=== PATIENT | female | born 1980 | race Caucasian/White ===

== ENCOUNTER 2024-04-26 08:36 | Emergency (ER) | payer SELFPAY ==
[2024-04-26] MEDS ORDERED: Nicardipine/NS 25 MG/250 ML KIT IV ONE (08:54)
--- NOTE | 2024-04-26 09:02 | RAD REPORT ---
Procedure: Chest Single View HISTORY: Cardiac arrest COMPARISON: 2017 FINDINGS: Endotracheal tube has its tip couple centimeters above the fred. Nasogastric tube within the stomach Mild bilateral pulmonary opacities No significant pleural effusion noted. The heart is probably mildly enlarged
[2024-04-26] MEDS ORDERED: propofoL 1,000 MG/100 ML VIAL IV ONE (09:05)
[2024-04-26] MEDS ORDERED: NA CHLORIDE 0.9% 100 ML ONE (09:22)
[2024-04-26] MEDS ORDERED: LEVETIRACETAM 500 MG/5 ML VIAL IV ONE (09:22)
--- NOTE | 2024-04-26 09:26 | EDPHYS ---
Physician Documentation [facility] Name: Anjana Dunne Age: 43 yrs Sex: Female : 1980 Arrival Date: 04/26/2024 Time: 08:36 Bed 2 Private MD: ED Physician Antonio Borja HPI: 04/26 09:26 This 43 yrs old Female presents to ER via EMS with complaints of CPR. ms3 09:26 Anjana Dunne is a 43-year-old female who was brought to the Emergency Department via [facility] after experiencing cardiac arrest. On EMS arrival patient was in pulseless electrical activity (PEA) and later went into asystole. Cardiopulmonary resuscitation (CPR) was performed for 13 minutes, after which circulation was restored. The patient received 20 micrograms of push dose epinephrine prior to arrival at the hospital. Her initial heart rate post-resuscitation was 116 beats per minute. She now exhibits some purposeful movements. Prior to this event, she had no recent history of illness or changes in health status as reported by her family.. Historical: - Allergies: :54 No Known Allergies; bp - Home Meds: :54 None [Active]; bp - PMHx: :54 None; bp - Immunization history:: Adult Immunizations unknown. - Infectious Disease History:: Denies. - Social history:: Smoking status: unknown. ROS: 09:26 Unable to obtain ROS due to obtunded state, ms3 Exam: 09:26 Respiratory: Lungs have equal breath sounds bilaterally, clear to auscultation and ms3 percussion. No rales, rhonchi or wheezes noted. No increased work of breathing, no retractions or nasal flaring. 09:26 Abdomen/GI: Soft, non-tender, with normal bowel sounds. No distension or tympany. No guarding or rebound. No evidence of tenderness throughout. 09:26 Eyes: Pupils: Pupils sluggish to light, equal, 09:26 ENT: 7.5 ETT. 09:26 Cardiovascular: Rate: tachycardic, Rhythm: regular, Pulses: no pulse deficits are appreciated, Heart sounds: normal, normal S1and S2, 09:26 Neuro: Orientation: unable to test, Mentation: unable to test, Memory: unable to test, ms3 09:55 ECG was reviewed by the Attending Physician. ms3 Vital Signs: 08:38 BP 262 / 158; Pulse 112; Resp 12; Temp 97.8; Pulse Ox 100% ; Weight 87 kg; bp 08:45 BP 268 / 189; Pulse 132; Resp 18; Pulse Ox 99% on ETT vent; ko1 09:00 BP 197 / 145; Pulse 138; Resp 18; Pulse Ox 100% ; ko1 09:15 BP 218 / 154; Pulse 148; Resp 18; Pulse Ox 100% ; ko1 09:27 BP 205 / 134; Pulse 150; Resp 18; Pulse Ox 100% ; ko1 09:40 BP 192 / 122; Pulse 152; Resp 18; Pulse Ox 99% ; ko1 09:54 BP 199 / 122; Pulse 151; Resp 23; Pulse Ox 100% ; bp Diogenes Coma Score: 09:26 Eye Response: none(1). Motor Response: none(1). Verbal Response: none(1). Total: 3. ms3 MDM: 08:39 Medical Screening Exam initiated ms3 09:25 ED course: Discussed case with Dr Suazo and he accepts patient to the ED. ms3 09:37 ED course: [facility] notified of transfer and will arrive in 10 min.. ms3 09:53 Differential diagnosis: cardiac arrest, respiratory arrest, ICH. Data reviewed: vital ms3 signs, nurses notes, lab test result(s), radiologic studies, and as a result, I will. Consideration of Admission/Observation Will transfer. Management of patient was discussed with the following: Neuro ICU, Dr Suazo, accepts to ER. Discussed case with Dr Hailee Levin and she accepts patient to ER. I considered the following discharge prescriptions or medication management in the emergency department Medications were administered in the Emergency Department. See MAR. Independent interpretation of the following test(s) in the Emergency Department EKG: See my EKG interpretation above. Historians other than the Patient: EMS: Gee Hendricks. Counseling: I had a detailed discussion with the patient and/or guardian regarding the historical points, exam findings, and any diagnostic results supporting the discharge/admit diagnosis, lab results, radiology results, the need to transfer to another facility, for higher level of care. 04/26 08:40 Order name: Basic Metabolic Panel ms3 04/26 08:40 Order name: CBC with Diff ms3 04/26 08:40 Order name: LFT's ms3 04/26 08:40 Order name: Magnesium ms3 04/26 08:40 Order name: PT-INR ms3 04/26 08:40 Order name: Troponin HS ms3 04/26 09:05 Order name: Test, Serum ms3 04/26 08:40 Order name: XRAY Chest (1 view); Complete Time: 09:17 ms3 04/26 08:41 Order name: CT Head C Spine; Complete Time: 09:38 ms3 04/26 09:18 Order name: Chest Abd Pelvis Wo Con; Complete Time: 09:38 EDMS 04/26 08:40 Order name: Cardiac monitoring; Complete Time: 08:52 ms3 04/26 08:40 Order name: EKG - Nurse/Tech; Complete Time: 08:52 ms3 04/26 08:40 Order name: IV Saline Lock; Complete Time: 09:14 ms3 04/26 08:40 Order name: Labs collected and sent; Complete Time: 09:14 ms3 04/26 08:40 Order name: O2 Per Protocol; Complete Time: 08:52 ms3 04/26 08:40 Order name: O2 Sat Monitoring; Complete Time: 08:52 ms3 04/26 09:05 Order name: Labs - recollect needed: recollect all tubes; Complete Time: 09:39 bd EC:55 Rate is 117 beats/min. Rhythm is regular. QRS [place] is Normal. MO interval is normal. ms3 QRS interval is normal. Clinical impression: Sinus tachycardia and with PVC. Interpreted by me. Reviewed by me. Administered Medications: 09:00 Drug: niCARdipine IV 5 mg/hr IV at calculated rate See Administration Instructions; bp (Standard concentration 25 mg / 250 mL NS); Recommended max rate 15 mg/hr; Titrate 2.5 mg/hr as often as every 15 minutes to achieve goal (see titration policy); Goal parameter SBP less than 160 mmHg Route: IV; Rate: calculated rate; Site: left antecubital; 09:58 Follow up: IV Status: Infusion continued upon transfer bp 10:18 Follow up: IV Status: Infusion continued upon transfer ko1 09:10 Drug: Propofol IV 5 mcg/kg/min IV at calculated rate See Administration Instructions; bp Standard concentration 1000 mg / 100 mL; Recommended max rate 50 mcg/kg/min; Titrate 5 mcg/kg/min every 5 minutes to achieve goal (see titration policy); Goal parameter RASS score 0 to -2 Route: IV; Rate: calculated rate; Site: left antecubital; 09:58 Follow up: IV Status: Infusion continued upon transfer bp 10:18 Follow up: IV Status: Infusion continued upon transfer ko1 09:31 Drug: Keppra IV 20 mg/kg IV at calculated rate once; not to exceed 2,500 milligrams bp administer over 15 minutes Route: IV; Rate: calculated rate; Site: left hand; 09:45 Follow up: Response: No adverse reaction; IV Status: Completed infusion; IV Intake: ko1 100ml 09:58 Follow up: IV Status: Completed infusion bp 09:57 Drug: Ativan IVP 2 mg IVP once Route: IVP; Site: left forearm; ko1 09:58 Follow up: Response: No adverse reaction bp 10:19 Follow up: Response: No adverse reaction ko1 Disposition: 09:56 Chart complete. ms3 Disposition Summary: 04/26/24 09:25 Transfer Ordered Notes: Transfer Location: [facility] ms3 Reason: Higher level of care ms3 Condition: Critical ms3 Problem: new ms3 Symptoms: are unchanged ms3 Accepting Physician: Dr Suazo(04/26/24 10:17) ll1 Diagnosis - Nontraumatic subarachnoid hemorrhage, unspecified ms3 - Hypertensive Emergency ms3 Forms: - Medication Reconciliation Form ms3 - SBAR form ms3 Signatures: Dispatcher [employer] EDMS Irma Chacon Brian RN NASIR bp Zara Sanchez RN RN ll1 Antonio Borja DO DO ms3 Robyn Mcclelland RN RN ko1 Corrections: (The following items were deleted from the chart) 08:40 08:40 BASIC METABOLIC PANEL+C.LAB.BRZ ordered. EDMS EDMS 08:40 08:40 CBC+H.LAB.BRZ ordered. EDMS EDMS 08:40 08:40 HEPATIC FUNCTION+C.LAB.BRZ ordered. EDMS EDMS 08:40 08:40 MAGNESIUM+C.LAB.BRZ ordered. EDMS EDMS 08:40 08:40 PROTIME (+INR)+COAG.LAB.BRZ ordered. EDMS EDMS 08:40 08:40 Troponin High Sensitivity+C.LAB.BRZ ordered. EDMS EDMS 08:40 08:40 Chest Single View+RAD.RAD.BRZ ordered. EDMS EDMS 09:18 08:42 Chest For PE Angio+CT.RAD.BRZ ordered. EDMS EDMS 09: 08:42 Abdomen Pelvis W Con+CT.RAD.BRZ ordered. EDMS EDMS 10:17 09:25 Dr Suazo ms3 ll1
--- NOTE | 2024-04-26 09:26 | ER ---
Nurse's Notes [facility] Name: Anjana Dunne Age: 43 yrs Sex: Female : 1980 Arrival Date: 04/26/2024 Time: 08:36 Bed 2 Private MD: Diagnosis: Nontraumatic subarachnoid hemorrhage, unspecified;Hypertensive Emergency Presentation: 04/26 08:38 Chief complaint: EMS states: FOUND DOWN BY , UNKNOWN DOWNTIME. Care prior to bp arrival: Assisted ventilation, Oral intubation, CPR via thumper performed by EMS Medication(s) given: EPI x2 IV initiated. LEFT TIB IO Glucose check: 108. Compressions began prior to arrival. 08:38 Method Of Arrival: EMS: [facility] bp 08:38 Acuity: [place] 1 bp 08:38 Coronavirus screen: At this time, the client does not indicate any symptoms associated bp with coronavirus-19. Ebola Screen: No symptoms or risks identified at this time. Initial Sepsis Screen: Does the patient meet any 2 criteria? Altered Mental Status. HR > 90 bpm. Does the patient have a suspected source of infection? No. Patient's initial sepsis screen is negative. Risk Assessment: Do you want to hurt yourself or someone else? Unable to obtain. Onset of symptoms is unknown. Triage Assessment: 09:57 General: Appears distressed, Behavior is unresponsive. Pain: Unable to use pain scale. bp Does not appear to understand pain scale. Historical: - Allergies: 09:54 No Known Allergies; bp - Home Meds: 09:54 None [Active]; bp - PMHx: 09:54 None; bp - Immunization history:: Adult Immunizations unknown. - Infectious Disease History:: Denies. - Social history:: Smoking status: unknown. Screenin:38 Abuse screen: Denies threats or abuse. Denies injuries from another. Nutritional bp screening: No deficits noted. Tuberculosis screening: No symptoms or risk factors identified. 08:[address] [facility] ED Fall Risk Assessment (Adult) History of falling in the last 3 months, bp including since admission No falls in past 3 months (0 pts) Confusion or Disorientation No (0 pts) Intoxicated or Sedated No (0 pts) Impaired Gait No (0 pts) Mobility Assist Device Used No (0 pt) Altered Elimination No (0 pt) Score/Fall Risk Level 0 - 2 = Low Risk Oriented to surroundings. Assessment: 08:38 CPR assessment: unresponsive. 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 General: Appears in no bp apparent distress. Behavior is unresponsive. Neuro: Level of Consciousness is unresponsive, Oriented to none. EENT: No deficits noted. Cardiovascular: Rhythm is sinus tachycardia. Respiratory: Ventilator assessment: ET Tube: 7.5 23 cm. GI: No signs and/or symptoms were reported involving the gastrointestinal system. : No signs and/or symptoms were reported regarding the genitourinary system. Derm: No deficits noted. 09:14 Reassessment: SZ-LIKE ACTIVITY IN CT. MD AT B/S, SAH NOTED ON CT PER MD. bp 09:20 Reassessment: PT RETURNED FROM CT. bp 09:53 Reassessment: PT PADDY WITH [facility]. REPORT TO JASKARAN BEST AT [facility] ICU. bp Vital Signs: 08:38 BP 262 / 158; Pulse 112; Resp 12; Temp 97.8; Pulse Ox 100% ; Weight 87 kg; bp 08:45 BP 268 / 189; Pulse 132; Resp 18; Pulse Ox 99% on ETT vent; ko1 09:00 BP 197 / 145; Pulse 138; Resp 18; Pulse Ox 100% ; ko1 09:15 BP 218 / 154; Pulse 148; Resp 18; Pulse Ox 100% ; ko1 09:27 BP 205 / 134; Pulse 150; Resp 18; Pulse Ox 100% ; ko1 09:40 BP 192 / 122; Pulse 152; Resp 18; Pulse Ox 99% ; ko1 09:54 BP 199 / 122; Pulse 151; Resp 23; Pulse Ox 100% ; bp [employer] Coma Score: 09:26 Eye Response: none(1). Motor Response: none(1). Verbal Response: none(1). Total: 3. ms3 ED Course: 08:38 Patient arrived in ED. bd 08:38 Patient has correct armband on for positive identification. bp 08:38 Maintain EMS IV. Dressing intact. Good blood return noted. Site clean \T\ dry. Gauge \T\ bp site: 15 LEFT TIB/FIB IO. 08:38 Provided Education on: NA. bp 08:39 Antonio Borja DO is Attending Physician. ms3 08:44 Mynor Ellsworth, RN is Primary Nurse. bp 08:47 Triage completed. bp 08:51 No provider procedures requiring assistance completed. bp 08:57 XRAY Chest (1 view) In Process Unspecified. EDMS 09:00 Inserted saline lock: 18 gauge in left antecubital area, using aseptic technique. bp Flushed with 10 mL NS. 09:15 CT Head C Spine In Process Unspecified. EDMS 09:21 Chest Abd Pelvis Wo Con In Process Unspecified. EDMS 09:21 initiated transfer to [facility]. bd 09:27 Inserted saline lock: 20 gauge in right forearm, using aseptic technique. Flushed with ko1 10 mL NS. 09:31 Lab(s) recollected, by me, sent to lab. Inserted saline lock: 20 gauge in left hand, bp using aseptic technique. Blood collected. Flushed with 10 mL NS. 09:57 Patient transferred, IV remains in place. bp 09:58 Arm band placed on. bp 10:00 Report given to Jerome Jaquez EMT-P with [facility]. ko1 10:02 pt accepted in transfer to [facility] by dr walker to neuro icu [address] [place] [address] bed 11, bd admin approval given by Rosa M Phillips RN. Administered Medications: 09:00 Drug: niCARdipine IV 5 mg/hr IV at calculated rate See Administration Instructions; bp (Standard concentration 25 mg / 250 mL NS); Recommended max rate 15 mg/hr; Titrate 2.5 mg/hr as often as every 15 minutes to achieve goal (see titration policy); Goal parameter SBP less than 160 mmHg Route: IV; Rate: calculated rate; Site: left antecubital; 58 Follow up: IV Status: Infusion continued upon transfer bp 10:18 Follow up: IV Status: Infusion continued upon transfer ko1 09:10 Drug: Propofol IV 5 mcg/kg/min IV at calculated rate See Administration Instructions; bp Standard concentration 1000 mg / 100 mL; Recommended max rate 50 mcg/kg/min; Titrate 5 mcg/kg/min every 5 minutes to achieve goal (see titration policy); Goal parameter RASS score 0 to -2 Route: IV; Rate: calculated rate; Site: left antecubital; 58 Follow up: IV Status: Infusion continued upon transfer bp 10:18 Follow up: IV Status: Infusion continued upon transfer ko1 09:31 Drug: Keppra IV 20 mg/kg IV at calculated rate once; not to exceed 2,500 milligrams bp administer over 15 minutes Route: IV; Rate: calculated rate; Site: left hand; 09:45 Follow up: Response: No adverse reaction; IV Status: Completed infusion; IV Intake: ko1 100ml 09:58 Follow up: IV Status: Completed infusion bp 09:57 Drug: Ativan IVP 2 mg IVP once Route: IVP; Site: left forearm; ko1 09:58 Follow up: Response: No adverse reaction bp 10:19 Follow up: Response: No adverse reaction ko1 Medication: 09:58 VIS not applicable for this client. bp Intake: 09:45 IV: 100ml; Total: 100ml. ko1 Outcome: 08:38 Outcome Resuscitation successful bp 09:25 ER care complete, transfer ordered by MD. ms3 09:57 Transferred by helicopter to [facility], Transfer form completed. bp 09:57 Condition: stable 09:57 Instructed on the need for transfer, 10:17 Patient left the ED. ll1 Signatures: Dispatcher [employer] EDMS Irma Chacon Brian, RN RN bp Zara Sanchez RN RN ll1 Antonio Borja DO DO ms3 Robyn Mcclelland, RN RN ko1 Corrections: (The following items were deleted from the chart) 09:18 08:38 BP 262 / 158; Pulse 112bpm; Resp 12bpm; Pulse Ox 100%; Temp 97.8F; bp bp
--- NOTE | 2024-04-26 09:28 | RAD REPORT ---
EXAMINATION: CT HEAD WITHOUT CONTRAST CT CERVICAL SPINE WITHOUT CONTRAST CLINICAL INDICATION: Head and neck injury status post fall. Head and neck pain TECHNIQUE: Axial CT images from the skull base to the vertex without intravenous contrast. Axial CT i mages through the cervical spine were obtained without intravenous contrast. Sagittal and coronal reformatted images were created from the data set. Coronal and sagittal reformatted images were creat ed from the data set. One or more of the following dose reduction techniques were used: Automated exposure control, adjustment of the mA and/or kV according to patient size, and/or iterative reconstr uction. Unless otherwise specified, incidental findings do not require dedicated imaging follow-up. [id number]. Comparison: none FINDINGS: Large bilateral subarachnoid bleed. No shift of the midline structures. Ventricles are normal in caliber. No significant hypodensity within the brain No extra-axial fluid collection. No fluid within the sinuses/mastoids No fracture or dislocation is seen involving the cervical spine. IMPRESSION: Large subarachnoid bleed may be secondary to a ruptured aneurysm. The examination was discussed with Dr. Borja in the emergency room at 9:14 AM April 26, 2024
--- NOTE | 2024-04-26 09:37 | RAD REPORT ---
EXAM: CT CHEST, ABDOMEN AND PELVIS WITHOUT CONTRAST CLINICAL INDICATION: Chest and abdominal pain status post fall TECHNIQUE: CT chest, abdomen and pelvis was performed, without IV contrast, as per department protoco l. Axial, sagittal and coronal reconstructions were obtained. One or more of the following dose reduction techniques were used: Automated exposure control, adjustment of the mA and/or kV according to the patient size, and/or iterative reconstruction. Unless otherwise specified, incidental findings do not require dedicated imaging follow-up. The lack of IV and oral contrast limits evaluation of the mediastinum, andres, vessels, organs and teo l. COMPARISON: None FINDINGS: Images of the chest and abdomen are degraded by beam hardening and patient motion artifact. The patie nt's arms are down by her side. Mild bilateral pulmonary opacities. Endotracheal nasogastric tubes in good position No mediastinal hematoma seen. No pleural effusion. No pericardial effusion. Liver, spleen, pancreas, adrenals kidneys and bladder do not demonstrate a gross traumatic injury. There is no evidence of diverticulitis IMPRESSION: No acute traumatic injury involving the chest, abdomen/pelvis seen. Images are degraded by artifact.
[2024-04-26] MEDS ORDERED: LORazepam 2 MG/ML VIAL ONE (09:39)
[2024-04-26 09:43] LABS: Absolute Basophils 0.1 K/uL (0-0.5); Absolute Eosinophils 0.3 K/uL (0-0.5); Absolute Monocytes 0.3 K/uL (0.1-1.3); Absolute Neutrophil 23.4 K/uL (1.8-8.0); Basophils % 0.3 % (0-1.3); Eosinophils % 1.2 % (0-4.4); Hematocrit 40.1 % (36.0-45.0); Hemoglobin 12.9 g/dL (12.0-15.0); Lymphocytes % 14.2 % (15.3-44.8); MCH 24.8 pg (27.0-35.0); MCHC 32.1 g/dL (32.0-36.0); MCV 77.2 fL (80-100); MPV 8.6 fL (7.6-11.3); Monocytes % 1.1 % (3.3-12.3); Neutrophils % 83.2 % (41.7-73.7); Nucleated Red Blood Cells % 0.1 % (0-0); Platelets 291 thou/uL (152-406); RBC Red Blood Cell Count 5.19 M/uL (3.86-4.86); Red Cell Distribution Width 20.7 % (12.1-15.2)
[2024-04-26 09:58] LABS: PT Prothrombin Time 11.6 SECONDS (9.4-12.5); Protime INR 1.11
[2024-04-26 10:19] LABS: Albumin/Globulin Ratio 0.7 (1.1-1.8); Anion Gap 14.1 mEq/L (5.0-15.0); Bilirubin Direct 0.3 mg/dL (0-0.2); Bilirubin Indirect, Calculated 0.1 mg/dL (0.2-0.8); Bilirubin Total 0.4 mg/dL (0.2-1.0); Globulin 4.5 g/dL (2.3-3.5); Magnesium 1.7 mg/dL (1.6-2.4); Potassium 3.1 mEq/L (3.5-5.1); Protein, Total 7.5 g/dL (6.4-8.2)
[2024-04-26 10:27] LABS: Troponin High Sensitivity 86.3 pg/mL (<58.9)
[2024-04-26 11:01] VITALS: TEMP 97.8
[2024-04-26 11:08] VITALS: BP 199/122; O2SAT 100
[2024-04-26 12:24] LABS: Anisocytosis 1+; Blood Morphology Comment NOTED (NOT SEEN); Platelet Estimate ADEQ; White Blood Cell Scan OK (OK)
--- NOTE | 2024-04-27 12:15 | EKG ---
Test Date: 2024-04-26 Test Time: 08:42:04 Client Finance Analyst: BP MEASUREMENT RESULTS: Intervals: Rate: 117 LA: 164 QRSD: 90 QT: 330 QTc: 460 [place]: P: 79 LA: 164 QRS: 71 T: 11 INTERPRETIVE STATEMENTS: Poor data quality, interpretation may be adversely affected Sinus tachycardia with occasional premature ventricular complexes Left ventricular hypertrophy with repolarization abnormality Abnormal ECG Compared to ECG 06/23/2016 22:50:21 Ventricular premature complex(es) now present Left ventricular hypertrophy now present Early repolarization now present Sinus rhythm no longer present Electronically Signed On 04-27-24 12:12:49 MARKETING PROJECT SPECIALIST by Antione Cortez
== END 2024-04-26 10:17 | disposition short-term general hospital (02) ==
LOC: ER 08:36
DX: I60.9 Nontraumatic subarachnoid hemorrhage, unspecified (principal); I16.1 Hypertensive emergency
CPT/HCPCS: 36415; 70450; 71045; 71250; 72125; 74176; 80048; 80076; 83735; 84484; 84703; 85025; 85610; 93005; 94002; J1953; J2704